=== PATIENT | female | born 1965 | race Caucasian/White ===

== ENCOUNTER 2018-12-13 08:21 | Emergency (ER) | payer OTHER, SELFPAY ==
[2018-12-13 08:21] VITALS: BP 124/87; PULSE 87; RESP 12; TEMP 36.4; O2SAT 98; BMI 25.8
--- NOTE | 2018-12-13 08:29 | EKG12_ITS ---
Test Reason : CHEST,OTHER Blood Pressure : / mmHG Vent. Rate : 075 BPM Atrial Rate : 075 BPM P-R Int : 142 ms QRS Dur : 076 ms QT Int : 388 ms P-R-T Axes : 040 006 023 degrees QTc Int : 433 ms Normal sinus rhythm Low voltage QRS Borderline ECG Confirmed by MARLENI ANDERSON, JANA ([id number]), order editor AVTAR HAMM ([id number] on 12/17/2018 9:50:03 AM Referred By: RADHA Confirmed By:JANA YEPEZ MD
--- NOTE | 2018-12-13 08:35 | ED.VIS.GEN ---
History of Present Illness Chief Complaint: Chest Other Informant: Patient Onset: Today Context: Sudden Onset Timing: Continuous, Intermittent, - - Patient reports pleuritic pain that is located above her breast. Quality: Sharp Location: Above left breast Current Severity: Mild Maximum Severity: Moderate Worsened by: Breathing no effect with change in position Relieved by: Nothing Associated Symptoms: Mild shortness of breath Narrative: Patient is a 53-year-old woman who reports URI symptoms last week. She does acknowledge mild nasal congestion. She also has a cough, which is nonproductive. She presents because of sharp chest pain located above the left breast that started at 0750 and resolved at 0820. There is a pleuritic component. She denies leg pain, swelling discoloration. Recent trip to the [facility]. No prior history of PE or DVT. She reports left arm pain that is positional for the past month. She felt this was important since that would indicate heart problems. She states she had blood work as an outpatient in October and all tests were within normal range including cholesterol. She is present on no medication. She is a non-smoker. She states she exercises regularly. Prior similar symptoms: No Recent Illness/Hospitalization: No - Past Medical History (1) Depression Status: Chronic Past Medical History - Allergies and Home Meds Allergies/Adverse Reactions: Allergies No Known Allergies Allergy (Verified 12/13/18 08:31) Primary Care Physician: Leonardo Polk,Out of [Primary Care Provider] - Smoking Status: Never smoker Review of Systems General: Denies: Chills, Fever, Malaise, Sweats Eyes: Denies: Visual changes - bilaterally, Blurred Vision - bilaterally, Diplopia ENT: Denies: Bilateral ear pain, Rhinorrhea, Sore throat Cardiovascular: Reports: Chest pain. Denies: Palpitations Respiratory: Reports: Dyspnea, Cough. Denies: Sputum, Dyspnea on exertion, Orthopnea Gastrointestinal: Denies: Abdominal pain, Nausea, Vomiting, Diarrhea, Melena, Hematochezia Genitourinary: Denies: Dysuria, Hematuria, Frequency Musculoskeletal: Denies: Back pain, Extremity Pain Skin: Denies: Rash, Wounds Neurological: Denies: Headache, Weakness, Numbness Psych: Reports: Depression Allergy: Denies: Uticaria, Swelling of the mouth Physical Exam Vital Signs/Narrative: Vital Signs Temp Pulse Resp BP Pulse Ox 12/13/18 08:21 97.6 F L 87 12 124/87 H 98 Inital Vital Signs reviewed: Yes General: Well nourished, Well developed Eyes: Perrl, EOMI. Negative for: Pale conjunctiva, Scleral icterus ENT: Moist mucous membranes, No rhinorrhea, TM's clear. Negative for: Dry mucous membranes, Nasal congestion Neck: Supple, Nontender, No lymphadenopathy, No JVD Cardiovascular: Regular rate, Regular rhythm, No murmurs, Normal S1, Normal S2 Respiratory: No distress, CTA bilaterally, Chest nontender. Negative for: Rales, Rhonchi, Wheezing, Decreased Air Movement Abdomen: Soft, Nontender, Nondistended, Normal bowel sounds Back: Nontender, Normal Inspection Extremities: - - There is no asymmetry, swelling, discoloration, leg vein distention, palpable cords or tenderness along the distribution of the deep venous system. Skin: Normal color, No rash. Negative for: Cyanosis, Jaundice Neurological: Alert, Oriented x3, Cranial nerves II-XII grossly intact, Normal Strength, Normal Sensation, Normal Gait Psychological: - - Affect is flat. Thought content is normal. Diagnostic/Tx/Re-eval Chest X-Ray - ED: 2 View, Read by ED Physician, Read by Radiologist, Normal, Heart, Lungs, Mediastinum, Bony Structures, No Acute Disease Impressions Chest X-Ray 12/13/18 08:50 IMPRESSION: Normal x-ray examination of the chest. No acute abnormality is seen. Electronically Signed: Uriah Sylvester, at 9:06 EST , Service support , 12/13/18 08:50 Chest PA and Lateral [RAD] Stat Laboratory Results 12/13/18 12/13/18 12/13/18 08:45 08:45 08:45 WBC 3.9 L RBC 4.20 Hgb 13.2 Hct 40.4 MCV 96.2 MCH 31.4 MCHC 32.7 RDW 12.8 RDW Differential 44.9 H Plt Count 239 MPV 8.8 Immature Gran % (Auto) 0.000 Neut % (Auto) 44.9 L Lymph % (Auto) 44.2 H [place] % (Auto) 7.6 Eos % (Auto) 2.5 Baso % (Auto) 0.8 Absolute Neuts (auto) 1.8 L Absolute Lymphs (auto) 1.74 Total Counted Not Reportable D-Dimer Quant (PE/DVT) 0.48 Sodium 142 Potassium 4.2 Chloride 109 H Carbon Dioxide 25.0 Anion Gap 8 BUN 14 Creatinine 0.76 Estim Creat Clear Calc 89.46 Est GFR (MDRD) Af Amer 102 Est GFR (MDRD) Non-Af 84 BUN/Creatinine Ratio 18.4 Glucose 107 H Calcium 8.3 L - Rhythm Strip Rhythm Strip: Sinus Rhythm Rate: 79 Ectopy: None - EKG Initial EKG Interpretation: Sinus Rhythm - Ventricular rate is 75. WA interval, QRS duration, QT interval and axis are normal. Voltage is low. There is no evidence of any ischemic changes. - Medical Decision Making Patient presents with history of URI symptoms that started last week. She presently has a slight cough. She presents because of sharp pleuritic left-sided chest pain. Recently long-distance trip. She is on no hormonal therapy. She is not PERC negative. Well score for pulmonary embolus is +3 and there is moderate risk. Therefore a d-dimer was obtained. EKG was obtained to evaluate for atypical ischemia. Basic mental panel to assess renal function in the event the d-dimer is elevated and a CTA is required. Chest x-ray to determine if there is evidence of pneumonia which would explain her pleuritic pain. D-dimer is normal. Chest x-ray is normal. Patient with atypical presentation of chest pain. Suspect pleurisy secondary to upper respiratory infection. In my professional medical opinion no further workup is indicated or warranted at this time. ED Disposition - Plan for ED Patient: Disposition: Home or Assisted Living Diagnosis: Pleuritic chest pain Instructions: ED Chest Pain Pleurisy Referrals: [facility],Out of [Primary Care Provider] - 3-5 Days if not improving
--- NOTE | 2018-12-13 08:39 | ED.DCSUM_ITS ---
History of Present Illness Chief Complaint: Chest Other Informant: Patient Onset: Today Context: Sudden Onset Timing: Continuous, Intermittent, - - Patient reports pleuritic pain that is located above her breast. Quality: Sharp Location: Above left breast Current Severity: Mild Maximum Severity: Moderate Worsened by: Breathing no effect with change in position Relieved by: Nothing Associated Symptoms: Mild shortness of breath Narrative: Patient is a 53-year-old woman who reports URI symptoms last week. She does acknowledge mild nasal congestion. She also has a cough, which is nonproductive. She presents because of sharp chest pain located above the left breast that started at 0750 and resolved at 0820. There is a pleuritic component. She denies leg pain, swelling discoloration. Recent trip to the [facility]. No prior history of PE or DVT. She reports left arm pain that is positional for the past month. She felt this was important since that would indicate heart problems. She states she had blood work as an outpatient in October and all tests were within normal range including cholesterol. She is present on no medication. She is a non-smoker. She states she exercises regularly. Prior similar symptoms: No Recent Illness/Hospitalization: No - Past Medical History (1) Depression Status: Chronic Past Medical History - Allergies and Home Meds Allergies/Adverse Reactions: Allergies No Known Allergies Allergy (Verified 12/13/18 08:31) Primary Care Physician: Leonardo Polk,Out of [Primary Care Provider] - Smoking Status: Never smoker Review of Systems General: Denies: Chills, Fever, Malaise, Sweats Eyes: Denies: Visual changes - bilaterally, Blurred Vision - bilaterally, Diplopia ENT: Denies: Bilateral ear pain, Rhinorrhea, Sore throat Cardiovascular: Reports: Chest pain. Denies: Palpitations Respiratory: Reports: Dyspnea, Cough. Denies: Sputum, Dyspnea on exertion, Orthopnea Gastrointestinal: Denies: Abdominal pain, Nausea, Vomiting, Diarrhea, Melena, Hematochezia Genitourinary: Denies: Dysuria, Hematuria, Frequency Musculoskeletal: Denies: Back pain, Extremity Pain Skin: Denies: Rash, Wounds Neurological: Denies: Headache, Weakness, Numbness Psych: Reports: Depression Allergy: Denies: Uticaria, Swelling of the mouth Physical Exam Vital Signs/Narrative: Vital Signs Temp Pulse Resp BP Pulse Ox 12/13/18 08:21 97.6 F L 87 12 124/87 H 98 Inital Vital Signs reviewed: Yes General: Well nourished, Well developed Eyes: Perrl, EOMI. Negative for: Pale conjunctiva, Scleral icterus ENT: Moist mucous membranes, No rhinorrhea, TM's clear. Negative for: Dry mucous membranes, Nasal congestion Neck: Supple, Nontender, No lymphadenopathy, No JVD Cardiovascular: Regular rate, Regular rhythm, No murmurs, Normal S1, Normal S2 Respiratory: No distress, CTA bilaterally, Chest nontender. Negative for: Rales, Rhonchi, Wheezing, Decreased Air Movement Abdomen: Soft, Nontender, Nondistended, Normal bowel sounds Back: Nontender, Normal Inspection Extremities: - - There is no asymmetry, swelling, discoloration, leg vein distention, palpable cords or tenderness along the distribution of the deep venous system. Skin: Normal color, No rash. Negative for: Cyanosis, Jaundice Neurological: Alert, Oriented x3, Cranial nerves II-XII grossly intact, Normal Strength, Normal Sensation, Normal Gait Psychological: - - Affect is flat. Thought content is normal. Diagnostic/Tx/Re-eval Chest X-Ray - ED: 2 View, Read by ED Physician, Read by Radiologist, Normal, Heart, Lungs, Mediastinum, Bony Structures, No Acute Disease Impressions Chest X-Ray 12/13/18 08:50 IMPRESSION: Normal x-ray examination of the chest. No acute abnormality is seen. Electronically Signed: Uriah Sylvester, at 9:06 EST , Service support , 12/13/18 08:50 Chest PA and Lateral [RAD] Stat Laboratory Results 12/13/18 12/13/18 12/13/18 08:45 08:45 08:45 WBC 3.9 L RBC 4.20 Hgb 13.2 Hct 40.4 MCV 96.2 MCH 31.4 MCHC 32.7 RDW 12.8 RDW Differential 44.9 H Plt Count 239 MPV 8.8 Immature Gran % (Auto) 0.000 Neut % (Auto) 44.9 L Lymph % (Auto) 44.2 H [place] % (Auto) 7.6 Eos % (Auto) 2.5 Baso % (Auto) 0.8 Absolute Neuts (auto) 1.8 L Absolute Lymphs (auto) 1.74 Total Counted Not Reportable D-Dimer Quant (PE/DVT) 0.48 Sodium 142 Potassium 4.2 Chloride 109 H Carbon Dioxide 25.0 Anion Gap 8 BUN 14 Creatinine 0.76 Estim Creat Clear Calc 89.46 Est GFR (MDRD) Af Amer 102 Est GFR (MDRD) Non-Af 84 BUN/Creatinine Ratio 18.4 Glucose 107 H Calcium 8.3 L - Rhythm Strip Rhythm Strip: Sinus Rhythm Rate: 79 Ectopy: None - EKG Initial EKG Interpretation: Sinus Rhythm - Ventricular rate is 75. IN interval, QRS duration, QT interval and axis are normal. Voltage is low. There is no evidence of any ischemic changes. - Medical Decision Making Patient presents with history of URI symptoms that started last week. She p resently has a slight cough. She presents because of sharp pleuritic left-sided chest pain. Recently long-distance trip. She is on no hormonal therapy. She is not PERC negative. Well score for pulmonary embolus is +3 and there is moderate risk. Therefore a d-dimer was obtained. EKG was obtained to evaluate for atypical ischemia. Basic mental panel to assess renal function in the event the d-dimer is elevated and a CTA is required. Chest x-ray to determine if there is evidence of pneumonia which would explain her pleuritic pain. D-dimer is normal. Chest x-ray is normal. Patient with atypical presentation of chest pain. Suspect pleurisy secondary to upper respiratory infection. In my professional medical opinion no further workup is indicated or warranted at this time. ED Disposition - Plan for ED Patient: Disposition: Home or Assisted Living Diagnosis: Pleuritic chest pain Instructions: ED Chest Pain Pleurisy Referrals: [facility] Doctor,Out of [Primary Care Provider] - 3-5 Days if not improving
--- NOTE | 2018-12-13 08:50 | RAD_ITS ---
STUDY: X-RAY CHEST REASON FOR EXAM: Female, 53 years old. Left-sided rib pain. Dizziness. TECHNIQUE: PA and lateral views of the chest. COMPARISON: Comparison is made with prior study dated January 02, 2013. FINDINGS: EKG electrodes are seen The lungs are clear and expanded. Scattered calcified granulomas. There is no demonstrated pleural abnormality. Normal size heart. Normal mediastinum and kenneth. Normal visualized pulmonary arteries. Normal visualized aortic arch and descending thoracic aorta. Normal visualized thoracic spine. Normal visualized ribs, clavicles, and shoulders. There is no demonstrated abnormality of the visualized soft tissue structures of the upper abdomen. RAD/Chest PA and Lateral IMPRESSION: Normal x-ray examination of the chest. No acute abnormality is seen. Electronically Signed: Uriah Sylvester, at 9:06 EST , Service support ,
[2018-12-13 08:54] LABS: Absolute Lymphocyte Count 1.74 X10^3/ul (0.83-4.51); Absolute Neutrophil Count 1.8 X10^3/uL (2.0-7.7); Basophil# 0.03 X10^3/uL; Basophil% 0.8 % (0-1); Eosinophils% 2.5 % (0-5); Hematocrit 40.4 % (37-47); Hemoglobin 13.2 g/dl (12.0-15.0); Lymphocyte # 1.74 X10^3/ul (4.0); Lymphocyte % 44.2 % (19-41); Mean Corp Hgb Conc 32.7 g/gl (32-36); Mean Corpuscular Hgb 31.4 pg (27.0-32.0); Mean Corpuscular Volume 96.2 fL (81-99); Mean Platelet Vol. 8.8 fl (6.2-12.0); Monocyte% 7.6 % (0-10); Neutrophil # 1.77 X10^3/uL (2.7-7.7); Neutrophil % 44.9 % (47-70); Platelet Count 239 K/mm3 (150-450); RBC Distribution Width CV 12.8 % (11.6-14.6); RBC Distribution Width SD 44.9 fl (35.1-43.9); White Blood Count 3.9 K/mm3 (4.4-11.0)
[2018-12-13 08:55] LABS: POSITIVE COUNT NO; POSITIVE DIFFERENTIAL NO; POSITIVE MORPHOLOGY NO
[2018-12-13 09:03] LABS: D-Dimer Quantitative (DVT/PE) 0.48 FEU/ug/m (0.27-0.49)
[2018-12-13 09:04] LABS: Anion Gap 8 (5-15); BUN 14 mg/dL (7-18); BUN/Creat Ratio 18.4 RATIO (10-20); Calcium,Total 8.3 mg/dL (8.5-10.1); Chloride 109 mmol/L (98-107); Creatinine, Serum 0.76 mg/dL (0.55-1.02); EST Glomerular Filtration Rate 84 mL/min (>60); Est Glom Filt Rate - Afr Amer 102 mL/min (>60); Estimated Creatinine Clearance 89.46 ml/min; Glucose 107 mg/dL (74-106); Potassium 4.2 mmol/L (3.5-5.1); Sodium Level 142 mmol/L (136-145)
[2018-12-13 10:51] VITALS: BP 111/87
== END 2018-12-13 10:58 | disposition home or self-care (01) ==
PROVIDERS: Emergency Provider Emergency Medicine
DX: R07.81 Pleurodynia (principal)
CPT/HCPCS: 71046; 80048; 85025; 85379; 93005; 99285; A4216